=== PATIENT | female | born 1995 | race Caucasian/White ===

== ENCOUNTER 2019-02-09 04:00 | Inpatient (IN) ==
[2019-02-09] MEDS ORDERED: Naloxone 0.4 MG/ML INJ IVP PRN (04:03)
[2019-02-09] MEDS ORDERED: Lidocaine 1% 20 ML MDV INFILT PRN (04:03)
[2019-02-09] MEDS ORDERED: miSOPROStoL 25 MCG TABLET VG PRN (04:03)
[2019-02-09] MEDS ORDERED: *HR* Nalbuphine 10 MG/ML AMPUL IVP PRN (04:03)
[2019-02-09] MEDS ORDERED: Ondansetron 4 MG/2 ML VIAL IVP PRN (04:03)
[2019-02-09] MEDS ORDERED: Metoclopramide 10 MG/2 ML VIAL IVP PRN (04:03)
[2019-02-09] MEDS ORDERED: Famotidine 20 MG/2 ML VIAL IVP PRN (04:03)
[2019-02-09 05:22] LABS: Basophils % 0.3 %; Eosinophils # 0.1 K/mcL (0.0-0.6); Eosinophils % 0.7 %; Hematocrit 36.7 % (35.3-44.9); Hemoglobin 12.6 g/dL (11.5-15.4); Immature Granulocytes % 0.9 % (0-4); Lymphocytes # 2.4 K/mcL (0.6-4.6); Lymphocytes % 18.3 %; Mean Corpuscular HGB Conc 34.3 g/dL (31.6-35.5); Mean Corpuscular Hemoglobin 28.6 pg (28.0-33.3); Mean Corpuscular Volume 83.2 fL (83.0-100.0); Mean Platelet Volume 12.1 fL (9.4-12.4); Monocytes # 0.9 K/mcL (0.0-1.3); Monocytes % 6.9 %; Neutrophils # 9.7 K/mcL (1.6-8.9); Platelet Count 217 K/mcL (140-400); Red Blood Count 4.41 M/mcL (3.82-4.97); Red Cell Distribution Width 12.7 % (11.5-14.5); Segmented Neutrophils % 72.9 %; White Blood Count 13.3 K/mcL (4.3-11.1)
[2019-02-09] MEDS: D5% in Lactated Ringers 1,000 ML IVC SCH ×2 (05:26→13:38)
[2019-02-09 05:36] LABS: Amphetamine Screen,Urine Negative ng/mL (Cutoff=1000); Barbiturate Screen,Urine Negative ng/mL (Cutoff=200); Benzodiazepines Screen,Urine Negative ng/mL (Cutoff=200); Cannabinoid Screen,Urine Negative ng/mL (Cutoff = 50); Cocaine Screen,Urine Negative ng/mL (Cutoff= 300); Opiate Screen,Urine Negative ng/mL (Cutoff=300); Phencyclidine Screen,Urine Negative ng/mL (Cutoff=25)
[2019-02-09] MEDS ORDERED: Oxytocin 20 units/ LR 1000 mL 20 UNIT/1,000 ML BAG IVC SCH (10:00)
[2019-02-09 18:46] LABS: Basophils % 0.2 %; Eosinophils # 0.1 K/mcL (0.0-0.6); Eosinophils % 0.3 %; Hematocrit 38.8 % (35.3-44.9); Hemoglobin 13.1 g/dL (11.5-15.4); Immature Granulocytes % 0.6 % (0-4); Lymphocytes # 2.2 K/mcL (0.6-4.6); Lymphocytes % 14.2 %; Mean Corpuscular HGB Conc 33.8 g/dL (31.6-35.5); Mean Corpuscular Hemoglobin 28.1 pg (28.0-33.3); Mean Corpuscular Volume 83.3 fL (83.0-100.0); Mean Platelet Volume 12.1 fL (9.4-12.4); Monocytes # 1.1 K/mcL (0.0-1.3); Monocytes % 6.7 %; Neutrophils # 12.2 K/mcL (1.6-8.9); Platelet Count 220 K/mcL (140-400); Red Blood Count 4.66 M/mcL (3.82-4.97); White Blood Count 15.7 K/mcL (4.3-11.1)
[2019-02-09 18:59] LABS: Aspartate Amino Transferase 19 Units/L (13-39); BUN/Creatinine Ratio 15 (6-26); Blood Urea Nitrogen 9 mg/dL (6-20); eGFR For African Americans > 60 (> 60); eGFR For Non-African Americans > 60 (> 60)
[2019-02-09] MEDS ORDERED: Ringers Solution, Lactated 1,000 ML ONE ×2 (19:34→23:05)
[2019-02-09] MEDS ORDERED: *HR* FentaNYL (PF) 100 MCG/2 ML VIAL ONE (21:38)
[2019-02-09] MEDS ORDERED: Bupivacaine-MPF 0.25% 10 ML VIAL ONE (21:38)
[2019-02-09] MEDS: Epidural Premix (fent/bupiv) 110 ML EP SCH (22:18)
[2019-02-09] MEDS ORDERED: EPHEDrine 50 MG/ML VIAL ONE (23:02)
[2019-02-10] MEDS ORDERED: Ringers Solution, Lactated 1,000 ML ONE ×2 (03:45→06:34)
[2019-02-10] MEDS: Epidural Premix (fent/bupiv) 110 ML EP SCH (04:35)
[2019-02-10] MEDS ORDERED: Metoclopramide 10 MG/2 ML VIAL IVP ONE (06:01)
[2019-02-10] MEDS ORDERED: CeFAZolin Syr 3,000MG/30 ML 3,000 MG/30 ML SYRINGE IVPB ONE (06:01)
[2019-02-10] MEDS ORDERED: Lidocaine/EPI 1:200k 2% PF 20 ML VIAL ONE (06:01)
[2019-02-10] MEDS ORDERED: Famotidine 20 MG/2 ML VIAL IVP ONE (06:01)
[2019-02-10] MEDS ORDERED: *HR* Oxytocin 10 UNIT/ML VIAL IM ONE (06:02)
[2019-02-10] MEDS ORDERED: *HR* Morphine Sulfate/PF 10 MG/10 ML AMPUL ONE (06:05)
[2019-02-10] MEDS ORDERED: *HR* OxyCODONE Immed Rel 5 MG TABLET PO PRN (06:08)
[2019-02-10] MEDS ORDERED: Acetaminophen IV 1,000 MG/100 ML INFUS..BTL IVPB ONE (06:08)
[2019-02-10] MEDS ORDERED: *HR* HYDROmorphone (PF) 1 MG/ML SYRINGE IVP PRN (06:08)
[2019-02-10] MEDS ORDERED: ceFAZolin 2,000 MG in Water for inj. (sterile) 20 ML IVP ONE (06:09)
[2019-02-10] MEDS ORDERED: Ringers Solution, Lactated 1,000 ML IVC SCH (06:15)
[2019-02-10] MEDS ORDERED: Ondansetron 4 MG/2 ML VIAL ONE (06:36)
[2019-02-10] MEDS ORDERED: Ketorolac 30 MG/ML VIAL ONE (07:17)
[2019-02-10] MEDS ORDERED: Metoclopramide 10 MG/2 ML VIAL IVP PRN (10:32)
[2019-02-10] MEDS ORDERED: Oxytocin 20 units/ LR 1000 mL 20 UNIT/1,000 ML BAG IVC SCH ×2 (10:32)
[2019-02-10] MEDS ORDERED: Simethicone 80 MG TAB.CHEW PO PRN (10:32)
[2019-02-10] MEDS ORDERED: Rho Immune Globulin 1,500 UNIT SYRINGE IM ONE (10:32)
[2019-02-10] MEDS ORDERED: Ondansetron 4 MG/2 ML VIAL IVP PRN (10:32)
[2019-02-10] MEDS ORDERED: Sennosides 8.6 MG TABLET PO PRN (10:32)
[2019-02-10] MEDS: Acetaminophen 325 MG TABLET PO PRN (16:00)
[2019-02-10] MEDS: Prenatal Vit/FA 1 EACH TABLET PO SCH (17:46)
[2019-02-10] MEDS: Ketorolac 30 MG/ML VIAL IVP PRN (21:04)
[2019-02-11] MEDS: Ketorolac 30 MG/ML VIAL IVP PRN (04:05)
[2019-02-11 08:40] VITALS: BP 132/81
[2019-02-11 08:45] LABS: Basophils % 0.1 %; Eosinophils # 0.1 K/mcL (0.0-0.6); Eosinophils % 0.5 %; Immature Granulocytes % 0.6 % (0-4); Lymphocytes # 1.8 K/mcL (0.6-4.6); Lymphocytes % 12.7 %; Mean Corpuscular HGB Conc 32.8 g/dL (31.6-35.5); Mean Corpuscular Hemoglobin 28.2 pg (28.0-33.3); Mean Corpuscular Volume 86.1 fL (83.0-100.0); Mean Platelet Volume 11.2 fL (9.4-12.4); Monocytes % 7.3 %; Platelet Count 186 K/mcL (140-400); Red Blood Count 3.37 M/mcL (3.82-4.97); Red Cell Distribution Width 13.2 % (11.5-14.5); Segmented Neutrophils % 78.8 %; White Blood Count 13.9 K/mcL (4.3-11.1)
[2019-02-11 08:52] LABS: Hemoglobin 9.5 g/dL (11.5-15.4)
[2019-02-11] MEDS: Acetaminophen 325 MG TABLET PO PRN (08:56)
[2019-02-11] MEDS: Prenatal Vit/FA 1 EACH TABLET PO SCH (08:57)
[2019-02-11] MEDS ORDERED: Ibuprofen 600 MG TABLET PO PRN (12:00)
== END 2019-02-11 20:15 | disposition home or self-care (01) | DRG 787 ==
LOC: 1NENULAB 04:01 → 1NENUOBS 02-10 09:56
PROVIDERS: ADMIT Obstetrics & Gynecology; ATTEND Obstetrics & Gynecology